=== PATIENT | male | born 1985 | race Caucasian/White ===

== ENCOUNTER 2018-03-18 10:59 | Emergency (ER) | payer OTHER ==
--- NOTE | 2018-03-18 11:40 | UC ---
Minor Trauma HPI - HPI Summary HPI Summary: per sql data analyst: "Yesterday 1030 pt fell off roof about 20 feet and landed on both feet and fell on his back. Unsure but felt he may have passed out for couple seconds- states coworker on roof came right over to check on pt. Denies neck/back pain. Pain in bilat feet worse w/ ambulation and radiating into legs. Taking 600mg ibuprofen q6h since yesterday w/ some pain relief- none taken today. " -here w/ his Mom -he did have LOC. has been ambulating on feet since then. -entire left foot swelled immediately, right foot is just starting to swell this morning -left cheek trauma w/ swelling (? hit against left knee during fall). + nausea. no vomiting. no coffee grounds. no hematuria. - History of Current Complaint Chief Complaint: UCLowerExtremity Stated Complaint: BILATERAL FOOT PAIN Time Seen by Provider: 03/18/18 11:28 Pain Intensity: 7 - Allergies/Home Medications Allergies/Adverse Reactions: Allergies Allergy/AdvReac Type Severity Reaction Status Date / Time No Known Allergies Allergy Verified 03/18/18 11:18 Home Medications: Home Medications NK [No Home Medications Reported] 03/18/18 [History Confirmed 03/18/18] PMH/Surg Hx/FS Hx/Imm Hx Previously Healthy: Yes - Surgical History Surgical History: Yes Surgery Procedure, Year, and Place: LEFT KNEE MENISCUS REPAIR - Family History Known Family History: Positive: Hypertension - Social History Alcohol Use: None Substance Use Type: None Smoking Status (MU): Never Smoked Tobacco Type: Smokeless Tobacco Review of Systems All Other Systems Reviewed And Are Negative: Yes Constitutional: Positive: Negative Skin: Positive: Negative Eyes: Positive: Negative ENT: Positive: Negative Respiratory: Positive: Negative Cardiovascular: Positive: Negative Gastrointestinal: Positive: Negative Genitourinary: Positive: Negative Motor: Positive: Negative Neurovascular: Positive: Negative Musculoskeletal: Positive: Negative Neurological: Positive: Negative Psychological: Positive: Negative Is Patient Immunocompromised?: No Physical Exam Triage Information Reviewed: Yes Appearance: Pain Distress - ambulates very slowly in pain. visibly frustrated & uses prophanities, but not aggressive. Vital Signs: Initial Vital Signs Temp 97.8 F 03/18/18 11:18 Pulse 110 03/18/18 11:18 Resp 16 03/18/18 11:18 BP 146/93 03/18/18 11:18 Pulse Ox 97 03/18/18 11:18 Vital Signs Reviewed: Yes Eye Exam: Normal ENT Exam: Normal ENT: Positive: Pharynx normal, TMs normal Dental Exam: Normal Neck: Positive: Tenderness @ - upper cerviocal spine. no swelling or bruising Respiratory Exam: Normal Respiratory: Positive: Lungs clear, Normal breath sounds, No respiratory distress, No accessory muscle use. Negative: Crackles, Rhonchi, Stridor, Wheezing Cardiovascular Exam: Normal Cardiovascular: Positive: RRR - HR 90 on MD exam, No Murmur Abdomen Description: Positive: Nontender, Soft. Negative: CVA Tenderness (R), CVA Tenderness (L) Bowel Sounds: Positive: Present Musculoskeletal Exam: Normal Musculoskeletal: Positive: Other: - T & L/s spine NT. left foot with significant swelling throughout. mild echymosis dorsal mid foot. sens intact. limited toe movemnent. + 2 DP/PT b/l. rt foot with mild swelling evolving in right mid foot. heels swollen but no tenderness on palpation Neurological Exam: Normal Neurological: Positive: Other: - Cr III-XII intact. 5/5 strength UE & LE b/l and equal. sens intact to LO Psychological Exam: Normal - see above Skin Exam: Normal Minor Trauma Course/Dx - Course Course Of Treatment: Initially refused Anty jeramy and trx to ER for trauma work up, but his mom was able to persuade him. -agreed to colar. EMS called. trx to [facility] that they agreed to. refuses backboard to EMS. - adv NPO. 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
[2018-03-18] MEDS ORDERED: Ondansetron ODT TAB* 4 MG PO ONE (11:58)
[2018-03-18] MEDS ORDERED: Ondansetron ODT TAB* 4 MG ONE (11:59)
[2018-03-18 12:11] VITALS: BP 133/85
== END 2018-03-18 12:10 | disposition short-term general hospital (02) ==
LOC: UCCORT 10:59
DX: S99.922A Unspecified injury of left foot, initial encounter (principal); S99.921A Unspecified injury of right foot, initial encounter; M54.2 Cervicalgia; S06.9X1A Unspecified intracranial injury with loss of consciousness of 30 minutes or less, initial encounter; W13.2XXA Fall from, out of or through roof, initial encounter; Y92.9 Unspecified place or not applicable; Y99.0 Civilian activity done for income or pay
CPT/HCPCS: 99204; A9270-GY; G0463